=== PATIENT | female | born 1960 | race Caucasian/White ===

== ENCOUNTER → 2021-12-13 11:00 | Outpatient (BNVA) | payer MEDICAID, SELFPAY | PROVIDERS: Visit Provider Podiatrist Foot & Ankle Surgery | DX: L85.1 Acquired keratosis [keratoderma] palmaris et plantaris (principal); L84 Corns and callosities; M20.40 Other hammer toe(s) (acquired), unspecified foot; E11.9 Type 2 diabetes mellitus without complications; M21.621 Bunionette of right foot; M21.622 Bunionette of left foot | CPT/HCPCS: 17110 ==

== ENCOUNTER → 2022-01-24 10:48 | Outpatient (BNVA) | payer MEDICAID, SELFPAY | PROVIDERS: Visit Provider Podiatrist Foot & Ankle Surgery | DX: L84 Corns and callosities (principal); L85.1 Acquired keratosis [keratoderma] palmaris et plantaris; E11.9 Type 2 diabetes mellitus without complications; M21.621 Bunionette of right foot; M21.622 Bunionette of left foot; M21.611 Bunion of right foot; M21.612 Bunion of left foot; Z79.84 Long term (current) use of oral hypoglycemic drugs; M20.40 Other hammer toe(s) (acquired), unspecified foot | CPT/HCPCS: 17110 ==

== ENCOUNTER → 2022-04-25 10:08 | Outpatient (BNVA) | payer MEDICAID, SELFPAY | PROVIDERS: Visit Provider Podiatrist Foot & Ankle Surgery | DX: L85.1 Acquired keratosis [keratoderma] palmaris et plantaris (principal); E11.9 Type 2 diabetes mellitus without complications; L84 Corns and callosities; M21.621 Bunionette of right foot; M21.622 Bunionette of left foot; M21.612 Bunion of left foot; M21.611 Bunion of right foot | CPT/HCPCS: 17110 ==

== ENCOUNTER → 2022-06-29 08:58 | Outpatient (BNVA) | payer MEDICAID, SELFPAY | PROVIDERS: Visit Provider Podiatrist Foot & Ankle Surgery | DX: E11.8 Type 2 diabetes mellitus with unspecified complications (principal); L84 Corns and callosities; L85.1 Acquired keratosis [keratoderma] palmaris et plantaris; M21.612 Bunion of left foot; M21.611 Bunion of right foot; M20.40 Other hammer toe(s) (acquired), unspecified foot; M21.621 Bunionette of right foot; M21.622 Bunionette of left foot | CPT/HCPCS: 17110 ==

== ENCOUNTER → 2022-08-24 08:57 | Outpatient (BNVA) | payer MEDICAID, SELFPAY | PROVIDERS: Visit Provider Podiatrist Foot & Ankle Surgery | DX: L85.1 Acquired keratosis [keratoderma] palmaris et plantaris (principal); E11.69 Type 2 diabetes mellitus with other specified complication; L60.3 Nail dystrophy; M20.41 Other hammer toe(s) (acquired), right foot; M20.42 Other hammer toe(s) (acquired), left foot; M21.621 Bunionette of right foot; M21.622 Bunionette of left foot; M21.612 Bunion of left foot; M21.611 Bunion of right foot | CPT/HCPCS: 11721; 17110 ==

== ENCOUNTER 2022-10-09 09:00 | Outpatient (CLI) | payer MEDICAID, SELFPAY ==
--- NOTE | 2022-10-09 09:11 | MR_ITS ---
WS: [id number] MRI BRAIN WITH AND WITHOUT CONTRAST HISTORY: HEADACHE COMPARISON: None available. TECHNIQUE: Multiplanar imaging performed through the brain with MultiHance 17 ml's IV. No acute infarcts are seen. Leos-white matter differentiation is well preserved. No prior infarcts. Bilateral frontal lobe atrophy. No hippocampal atrophy. No susceptibility artifacts or prior lacunar infarcts. Ventricles and extra-axial spaces are normal. Clivus and pituitary gland are normal. Visualized posterior fossa and brainstem are also normal. Postcontrast images are negative for masses or vascular malformations. Dural venous sinuses are normal. Paranasal sinuses: Well aerated with no significant disease. Mastoid air cells: Normal. Calvarium and scalp: Normal. MR/MR head wo/w con [id number] IMPRESSION: 1. No acute infarct and no mass. 2. Mild bifrontal lobe atrophy. 3. No significant small vessel ischemic disease.
[2022-10-09] MEDS: gadobenate dimeglumine 20 mL vial IV (10:15)
== END 2022-10-09 09:01 | disposition home or self-care (01) ==
PROVIDERS: PCP Family Medicine; Visit Provider Family Medicine
DX: R51.9 Headache, unspecified (principal)
CPT/HCPCS: 70553; A9577

== ENCOUNTER → 2022-11-22 11:20 | Outpatient (BNVA) | payer MEDICAID, SELFPAY | PROVIDERS: PCP Family Medicine; Visit Provider Podiatrist Foot & Ankle Surgery | DX: E11.8 Type 2 diabetes mellitus with unspecified complications (principal); L85.1 Acquired keratosis [keratoderma] palmaris et plantaris; M21.621 Bunionette of right foot; M21.622 Bunionette of left foot; L60.3 Nail dystrophy; M21.611 Bunion of right foot; M21.612 Bunion of left foot; M20.42 Other hammer toe(s) (acquired), left foot; M20.41 Other hammer toe(s) (acquired), right foot | CPT/HCPCS: 11721; 17110 ==

== ENCOUNTER → 2023-01-24 10:12 | Outpatient (BNVA) | payer MEDICAID, SELFPAY | PROVIDERS: PCP Family Medicine; Visit Provider Podiatrist Foot & Ankle Surgery | DX: M20.40 Other hammer toe(s) (acquired), unspecified foot; E11.9 Type 2 diabetes mellitus without complications; M21.621 Bunionette of right foot; M21.622 Bunionette of left foot; M21.612 Bunion of left foot; M21.611 Bunion of right foot | CPT/HCPCS: 99213 ==

== ENCOUNTER 2023-11-18 11:34 | Emergency (ER) | payer MEDICAID, SELFPAY ==
[2023-11-18 11:43] VITALS: BP 116/76; PULSE 62; RESP 18; TEMP 36.6; O2SAT 97; BMI 34.3
[2023-11-18 13:32] LABS: Basophils # 0.1 10^3/uL (0.0-0.1); Basophils % 1.8 %; Eosinophils # 0.1 10^3/uL (0.0-0.8); Eosinophils % 2.1 %; Lymphocytes # 1.6 10^3/uL (0.8-4.8); Lymphocytes % 30.2 %; Mean Corpuscular HGB Conc 30.5 g/dL (30-55); Mean Corpuscular Hemoglobin 27.5 pg (27-33); Mean Platelet Volume 9.6 fL (7.4-10.4); Monocytes # 0.4 10^3/uL (0.2-0.9); Monocytes % 8.4 %; Neutrophils # 2.93 10^3/uL (1.8-7.7); Neutrophils % 57.1 %; Nucleated Red Blood Cells % 0 %; Platelet Count 299 10^3/cmm (157-399); Red Blood Count 4.22 10^6/uL (3.85-5.65); Red Cell Distribution Width 13.4 % (12.1-15.1); White Blood Count 5.13 10^3/uL (3.29-11.43)
[2023-11-18 13:40] VITALS: O2SAT 99
[2023-11-18] MEDS: morphine 4 mg/mL SDV 1 mL IVP (13:40)
[2023-11-18] MEDS: ondansetron 2 mg/ML SDV 2 mL 4 MG IVP (13:40)
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
[2023-11-18 13:43] VITALS: BP 116/79; PULSE 59; RESP 16; O2SAT 96
[2023-11-18 13:52] LABS: Anion Gap 18.8 (5-19); Blood Urea Nitrogen 36 mg/dL (8-23); Calcium 8.9 mg/dL (8.5-10.5); Carbon Dioxide 23 mmol/L (22-29); Chloride 105 mmol/L (98-107); Glomerular Filtration Rate 21.6 mL/min (90-130); Glucose 199 mg/dL (65-115); Osmolality Calculated 308 mOsm/kg (285-295); Potassium 4.8 mmol/L (3.5-5.1); Sodium 142 mmol/L (136-145)
[2023-11-18 14:08] LABS: Creatinine Clr Calc Pharmacy 24.0186
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
[2023-11-18 16:20] VITALS: BP 116/62; PULSE 56; RESP 12; O2SAT 98
== END 2023-11-18 16:30 | disposition home or self-care (01) ==
PROVIDERS: Emergency Provider Emergency Medicine; PCP Family Medicine
DX: S22.31XA Fracture of one rib, right side, initial encounter for closed fracture (principal); N28.9 Disorder of kidney and ureter, unspecified; Z79.84 Long term (current) use of oral hypoglycemic drugs; Z79.85 Long-term (current) use of injectable non-insulin antidiabetic drugs; V89.2XXA Person injured in unspecified motor-vehicle accident, traffic, initial encounter
CPT/HCPCS: 36415; 71250; 80048; 85025; 96374; 96375; 99285; J2270; J2405

== ENCOUNTER 2023-12-26 11:11 | Outpatient (CLI) | payer MEDICAID, SELFPAY ==
--- NOTE | 2023-12-26 11:15 | MM_ITS ---
WS: [id number] SCREENING DIGITAL BREAST TOMOSYNTHESIS MAMMOGRAM WITH CAD HISTORY: SCREENING COMPARISON: None available. Bilateral CC and MLO with tomosynthesis and synthetic mammography submitted. Computer aided detection analyzed. Breast composition: There are scattered areas of fibroglandular density. Focal asymmetry superior LEF T breast near 12:00. Asymmetry measures approximately 9 mm. Seen best on the lateral projection. No a dditional abnormalities. No suspicious grouping of calcifications. MM/MM scr BI tomosynthesis [id number] IMPRESSION: BI-RADS: 0 - Incomplete: Need additional imaging evaluation. FOLLOW UP: Need Additional Imaging LEFT breast: Spot compression views (CC and MLO). True ML. Ultrasound to follow if abnormality persists.
== END 2023-12-26 11:12 | disposition home or self-care (01) ==
LOC: RAD 11:11
PROVIDERS: PCP Family Medicine; Visit Provider Family Medicine
DX: Z12.31 Encounter for screening mammogram for malignant neoplasm of breast (principal)
CPT/HCPCS: 77063; 77067

== ENCOUNTER → 2024-01-28 10:50 | Outpatient (BNVA) | payer MEDICAID, SELFPAY | PROVIDERS: PCP Family Medicine; Visit Provider Podiatrist Foot & Ankle Surgery | DX: E11.8 Type 2 diabetes mellitus with unspecified complications (principal); M20.41 Other hammer toe(s) (acquired), right foot; M20.42 Other hammer toe(s) (acquired), left foot; E11.69 Type 2 diabetes mellitus with other specified complication; M21.621 Bunionette of right foot; M21.622 Bunionette of left foot; M21.611 Bunion of right foot; M21.612 Bunion of left foot | CPT/HCPCS: 99213 ==

== ENCOUNTER 2024-02-11 10:06 | Outpatient (CLI) | payer MEDICAID, SELFPAY ==
--- NOTE | 2024-02-11 10:10 | MM_ITS ---
WS: [id number] ADDITIONAL VIEWS LEFT MAMMOGRAM with tomosynthesis. LEFT BREAST ULTRASOUND HISTORY: ABNORMAL MAMMOGRAM COMPARISON: 12/26/2023 LEFT MAMMOGRAM: Spot compression views and true ML with tomosynthesis and sympathetic mammography. Irregular asymmetry persists but is much less apparent in the superior breast which is just medial to the nipple line posterior. Asymmetry measures 6 x 7 x 5 mm. No associated calcifications. LEFT BREAST ULTRASOUND 2-D and color Doppler imaging submitted. Ultrasound is directed to the superior breast both medial and lateral to the nipple line at a posteri or depth. No ultrasound abnormality is identified. This is likely normal fibroglandular pattern for t his female. MM/MM diag LT tomosynthesis [id number] IMPRESSION: BI-RADS: 2- Benign FOLLOW UP: 1 Year Follow-up
== END 2024-02-11 10:07 | disposition home or self-care (01) ==
LOC: RAD 10:07
PROVIDERS: PCP Family Medicine; Visit Provider Family Medicine
DX: R92.8 Other abnormal and inconclusive findings on diagnostic imaging of breast (principal); R92.323 Mammographic fibroglandular density, bilateral breasts
CPT/HCPCS: 76642; 77061; G0279

== ENCOUNTER → 2025-01-26 11:02 | Outpatient (BNVA) | payer MEDICAID, SELFPAY | PROVIDERS: PCP Family Medicine; Visit Provider Podiatrist Foot & Ankle Surgery | DX: E11.8 Type 2 diabetes mellitus with unspecified complications (principal); M20.41 Other hammer toe(s) (acquired), right foot; M20.42 Other hammer toe(s) (acquired), left foot; E11.69 Type 2 diabetes mellitus with other specified complication; M21.621 Bunionette of right foot; M21.622 Bunionette of left foot; M21.611 Bunion of right foot; M21.612 Bunion of left foot | CPT/HCPCS: 99213 ==